=== PATIENT | male | born 1995 | race Two or more races ===

== ENCOUNTER 2024-07-11 07:00 | Outpatient (CLI) | payer SELFPAY ==
--- NOTE | 2024-07-11 12:15 | XRAY Report ---
PROCEDURE: Foot 3+V RT INDICATIONS: RIGHT ANKLE PAIN TECHNIQUE: 3 views of the foot were acquired. COMPARISON: None. FINDINGS: Bones: No fractures or dislocations. No suspicious bony lesions. Soft tissues: No tibiotalar joint effusion. Achilles tendon appears normal. IMPRESSION: No acute bony abnormality. Reviewed by: Jose Carrasco MD on 07/11/2024 12:14 PM PDT Approved by: Jose Carrasco MD on 07/11/2024 12:14 PM PDT Station ID: [id number]
--- NOTE | 2024-07-11 12:15 | XRAY Report ---
PROCEDURE: Ankle 3+V RT INDICATIONS: RIGHT ANKLE PAIN TECHNIQUE: 3 views of the ankle were acquired. COMPARISON: None. FINDINGS: Bones: No fractures or dislocations. Ankle mortise is normally aligned. No suspicious bony lesions . Soft tissues: Moderate tibiotalar joint effusion. Achilles tendon appears normal. Moderate ankle s welling. IMPRESSION: No displaced fractures. Moderate joint effusion. Internal derangement not excluded. Reviewed by: Jose Carrasco MD on 07/11/2024 12:13 PM PDT Approved by: Jose Carrasco MD on 07/11/2024 12:13 PM PDT Station ID: [id number]
== END 2024-07-11 23:59 | disposition home or self-care (01) ==
LOC: DI.S 07:00
PROVIDERS: ATTEND Registered Nurse
DX: M25.571 Pain in right ankle and joints of right foot (principal); M25.471 Effusion, right ankle